=== PATIENT | male | born 1975 | race African-American/Black ===

== ENCOUNTER 2023-04-23 22:36 | Emergency (ER) | payer MEDICARE, OTHER ==
[~2023-04-23] VITALS: Ht 167.6 cm; Wt 100.0 kg
[2023-04-23 23:00] VITALS: BP 135/83; PULSE 66; RESP 16; O2SAT 98
[2023-04-24 00:10] LABS: Urine WBC None Seen /hpf (0 - 3)
[2023-04-24 00:37] LABS: Urine Bacteria NONE SEEN /hpf (None Seen); Urine Blood Negative /uL (Negative); Urine Clarity Clear (Clear); Urine Color Colorless (Yellow); Urine Protein, UAD Negative (Negative); Urine Specific Gravity 1.013 (1.001-1.035); Urine Urobilinogen Normal (Negative)
[2023-04-24] MEDS ORDERED: CYCL-614 PO (01:37)
[2023-04-24] MEDS ORDERED: IBUP-1456 PO (01:37)
[2023-04-24] MEDS: KETOROLAC TROMETH 60MG/2ML VIAL IM ONE (01:41)
== END 2023-04-24 01:50 | disposition home or self-care (01) ==
LOC: ER 22:36
DX: S46.812A Strain of other muscles, fascia and tendons at shoulder and upper arm level, left arm, initial encounter (principal); R30.0 Dysuria; Z88.8 Allergy status to other drugs, medicaments and biological substances; Z79.899 Other long term (current) drug therapy; X50.0XXA Overexertion from strenuous movement or load, initial encounter; Y93.89 Activity, other specified; Y92.89 Other specified places as the place of occurrence of the external cause; Y99.8 Other external cause status
CPT/HCPCS: 81001; 96372; 99283; J1885

== ENCOUNTER 2023-07-19 18:35 | Inpatient (IN) | payer MEDICARE, MEDICAID ==
[~2023-07-19] VITALS: Ht 172.7 cm; Wt 56.7 kg
[~2023-07-19 18:35] MED LIST: CYCL-614 PO; IBUP-1456 PO
[2023-07-19 19:36] LABS: Basophils # (auto) 0 10 ^3/uL (0-0.2); Eosinophils # (auto) 0.3 10 ^3/uL (0-0.8); Hemoglobin 14.2 g/dL (13.5-17.5); Monocytes # (auto) 0.5 10 ^3/uL (0-1.3); Neutrophils # (auto) 1.7 10 ^3/uL (1.6-8.6); Nucleated Red Blood Cells % 0.2 %
[2023-07-19 19:38] LABS: Basophils % (auto) 0.7 % (0.0-2.0); Eosinophils % (auto) 6.3 % (0.0-7.0); Hematocrit 43.7 % (41.0-53.0); Lymphocytes # (auto) 2.4 10 ^3/uL (0.4-5.4); Lymphocytes % (auto) 48.3 % (10.0-50.0); Mean Corpuscular Hemoglobin 26.4 pg (28.0-32.0); Mean Corpuscular Hgb Conc. 32.5 g/dL (32.0-36.0); Mean Corpuscular Volume 81.4 fL (80.0-100.0); Monocytes % (auto) 10.2 % (0.0-12.0); Neutrophils % (auto) 34.5 % (37.0-80.0); Red Blood Cells 5.37 10^6/uL (4.5-5.90); Red Cell Distribution Width 14.8 % (11.8-14.3); White Blood Cell 4.9 10^3/uL (4.4-10.8)
[2023-07-19 19:52] LABS: Partial Thromboplastin Time 27.9 SEC (24.5-34.5); Prothrombin Time 10.6 sec (9.3-11.8)
[2023-07-19 19:57] LABS: Alanine Aminotransferase 31 U/L (7-40); Albumin 4.6 g/dL (3.2-4.8); Alkaline Phosphatase 82 U/L (46-116); Anion Gap 9 (5-15); Aspartate Aminotransferase 28 U/L (13-40); BUN/Creatinine Ratio 8.9 (10.0-20.0); Bilirubin, Total 0.6 mg/dL (0.2-1.0); Blood Urea Nitrogen 8 mg/dL (9-23); Calcium 10.1 mg/dL (8.5-10.1); Carbon Dioxide 28 mmol/L (20-30); Chloride 102 mmol/L (98-107); Glucose 123 mg/dL (74-106); Potassium 4.1 mmol/L (3.5-5.1); Sodium 139 mmol/L (136-145); Total Protein 7.5 g/dL (5.7-8.2)
[2023-07-19] MEDS ORDERED: HEPARIN SODIUM (PORCINE) 5000 UNITS/ML 1ML VIAL IV ONE (20:30)
[2023-07-19 21:05] VITALS: PULSE 64; RESP 13; O2SAT 99
[2023-07-19 21:09] LABS: Magnesium 1.8 mg/dL (1.6-2.6)
[2023-07-19] MEDS: ASPirin 81 mg TAB PO ONE (21:55)
[2023-07-19] MEDS: SODIUM CHLOR 0.9% PF (SALINE LOCK) 10ML VIAL/SYR IV SCH (22:06)
[2023-07-19] MEDS: ENOXAPARIN SOD 100 MG/1 ML SYRINGE SC ONE (22:07)
[2023-07-19] MEDS ORDERED: ACETAMINOPHEN 325 MG TAB PO PRN (22:15)
[2023-07-19] MEDS: ENOXAPARIN SOD 80 MG/0.8ML SYRINGE SC ONE (22:16)
[2023-07-19 22:18] LABS: Magnesium 1.8 mg/dL (1.6-2.6)
[2023-07-19] MEDS: SODIUM CHLORIDE 0.9% 1,000 ML IV SCH (22:58)
[2023-07-19] MEDS: ONDANSETRON HCL 4 MG/2 ML VIAL IV PRN (22:59)
[2023-07-19] MEDS: MORPHINE SULFATE INJ 2 MG/ml SYRG IV PRN (23:00)
[2023-07-20] VITALS (10 sets, daily range): BP systolic 106–137; BP diastolic 71–88; PULSE 64–82; RESP 14–22; TEMP 98.1–99.8; O2SAT 95–98
[2023-07-20 01:29] LABS: Urine Bacteria None Seen /hpf (None Seen); Urine WBC None Seen /hpf (0 - 3)
[2023-07-20 01:36] LABS: Urine Blood Negative /uL (Negative); Urine Clarity Clear (Clear); Urine Color Light-Yellow (Yellow); Urine Protein, UAD Negative (Negative); Urine Specific Gravity 1.012 (1.001-1.035); Urine Urobilinogen Normal (Negative)
[2023-07-20 05:56] LABS: Basophils # (auto) 0 10 ^3/uL (0-0.2); Eosinophils # (auto) 0.2 10 ^3/uL (0-0.8); Hemoglobin 14.2 g/dL (13.5-17.5); Lymphocytes # (auto) 2.2 10 ^3/uL (0.4-5.4); Monocytes # (auto) 0.5 10 ^3/uL (0-1.3)
[2023-07-20 06:00] LABS: Basophils % (auto) 0.6 % (0.0-2.0); Eosinophils % (auto) 2.7 % (0.0-7.0); Hematocrit 43.1 % (41.0-53.0); Lymphocytes % (auto) 34.4 % (10.0-50.0); Mean Corpuscular Hemoglobin 26.8 pg (28.0-32.0); Mean Corpuscular Hgb Conc. 32.9 g/dL (32.0-36.0); Mean Corpuscular Volume 81.5 fL (80.0-100.0); Monocytes % (auto) 8.1 % (0.0-12.0); Neutrophils # (auto) 3.5 10 ^3/uL (1.6-8.6); Neutrophils % (auto) 54.2 % (37.0-80.0); Nucleated Red Blood Cells % 0.1 %; Red Blood Cells 5.29 10^6/uL (4.5-5.90); Red Cell Distribution Width 14.2 % (11.8-14.3); White Blood Cell 6.5 10^3/uL (4.4-10.8)
[2023-07-20 06:07] LABS: Alanine Aminotransferase 27 U/L (7-40); Albumin 4.3 g/dL (3.2-4.8); Alkaline Phosphatase 78 U/L (46-116); Anion Gap 9 (5-15); Aspartate Aminotransferase 48 U/L (13-40); BUN/Creatinine Ratio 8.4 (10.0-20.0); Bilirubin, Total 0.7 mg/dL (0.2-1.0); Blood Urea Nitrogen 7 mg/dL (9-23); Calcium 9.8 mg/dL (8.5-10.1); Carbon Dioxide 27 mmol/L (20-30); Chloride 103 mmol/L (98-107); Glucose 119 mg/dL (74-106); Potassium 3.8 mmol/L (3.5-5.1); Sodium 139 mmol/L (136-145); Total Protein 7.3 g/dL (5.7-8.2)
[2023-07-20] MEDS: HYDROcodone-ACET 5/325MG TAB PO PRN (08:44)
[2023-07-20] MEDS: ASPirin 81 mg TAB PO SCH (08:44)
[2023-07-20] MEDS: HEPARIN DRIP/D5W 100UNITS/ML 250 ML IV SCH ×2 (08:49→16:16)
[2023-07-20] MEDS: ATORVASTATIN 20 MG TAB PO ONE (12:39)
[2023-07-20] MEDS: LISINOPRIL 20 MG TAB PO ONE (12:41)
[2023-07-20 15:31] LABS: INR 1.03 (0.9-1.15); Partial Thromboplastin Time 35.9 SEC (24.5-34.5); Prothrombin Time 10.9 sec (9.3-11.8)
[2023-07-20] MEDS: MORPHINE SULFATE INJ 2 MG/ml SYRG IV PRN (16:44)
[2023-07-20] MEDS: NITROGLYCERIN 0.4 MG SL TAB SL PRN (17:26)
[2023-07-20 21:58] LABS: Amphetamine Screen, Urine Neg (NEGATIVE); Barbiturate Scree,Urine Neg (NEGATIVE); Benzodiazephine Screen, Urine Neg (NEGATIVE); Cocaine Screen, Urine Neg (NEGATIVE); Opiate Scree,Urine Pos (NEGATIVE)
[2023-07-20 21:59] LABS: Cannabinoid Screen, Urine Neg (NEGATIVE); Phencyclidine Screen, Urine Neg (NEGATIVE)
[2023-07-20] MEDS: DOCUSATE SOD 100 MG CAP PO PRN (22:17)
[2023-07-20] MEDS: METOPROLOL TARTRATE 25 MG TAB PO SCH (22:18)
[2023-07-20 22:19] LABS: INR 1.01 (0.9-1.15); Partial Thromboplastin Time 37.9 SEC (24.5-34.5); Prothrombin Time 10.7 sec (9.3-11.8)
[2023-07-21] VITALS (12 sets, daily range): BP systolic 89–147; BP diastolic 43–95; PULSE 58–80; RESP 11–22; TEMP 97.5–98.5; O2SAT 95–100
[2023-07-21 07:14] LABS: INR 1.05 (0.9-1.15); Partial Thromboplastin Time 52.1 SEC (24.5-34.5); Prothrombin Time 11.1 sec (9.3-11.8)
[2023-07-21] MEDS: LISINOPRIL 20 MG TAB PO SCH (09:07)
[2023-07-21] MEDS: IODIXANOL 320MG/ML 100ML BTL IV ONE ×2 (09:42→10:38)
[2023-07-21] MEDS: HEPARIN IN NS 1000Units/500mL 1,500 ML ONE (09:42)
[2023-07-21] MEDS: LIDOCAINE 2%HCL (LOCAL ANESTH.) INJ 20ML MDV ONE (09:42)
[2023-07-21] MEDS: ANGIOMAX 250 MG VIAL IV ONE ×2 (09:43→11:09)
[2023-07-21] MEDS: fentaNYL CITRATE 100 MCG/2 ML VL ONE (09:44)
[2023-07-21] MEDS: HEPARIN SODIUM (PORCINE) 5000 UNITS/ML 1ML VIAL ONE (09:44)
[2023-07-21] MEDS: VERAPAMIL 2.5MG/ML INJ 2ML VIAL IV ONE (09:44)
[2023-07-21] MEDS: SODIUM CHL 0.9% 50 ML ONE ×2 (09:44→11:09)
[2023-07-21] MEDS: MIDAZOLAM HCL 2MG/2ML 2ml VIAL (1mg/ml) ONE (09:44)
[2023-07-21] MEDS: NOREPINEPHRINE 8 MG/250ML KIT 250 ML IV ONE (10:22)
[2023-07-21] MEDS: EPTIFIBATIDE INJ (2MG/ML) 10ML VIAL IV ONE ×2 (10:38→10:58)
[2023-07-21] MEDS: niCARdipine 25 MG/10 ML VIAL IV ONE (10:44)
[2023-07-21] MEDS: ASPirin 81 mg TAB ONE (11:52)
[2023-07-21] MEDS: CLOPIDOGREL BISULFATE 75 MG TAB ONE ×2 (11:53)
[2023-07-21] MEDS: ATORVASTATIN 20 MG TAB PO SCH (21:30)
[2023-07-22] VITALS (9 sets, daily range): BP systolic 99–122; BP diastolic 60–76; PULSE 59–80; RESP 16–22; TEMP 97.6–98.3; O2SAT 95–100
[2023-07-22] MEDS: CLOPIDOGREL BISULFATE 75 MG TAB PO SCH (10:04)
[2023-07-23 01:08] VITALS: BP 112/79; PULSE 63; RESP 17; TEMP 97.8; O2SAT 100
[2023-07-23 05:00] VITALS: BP 112/67; PULSE 72; RESP 17; TEMP 97.3; O2SAT 98
[2023-07-23 08:00] VITALS: PULSE 66; PULSE 72; RESP 18; O2SAT 98
[2023-07-23 09:00] VITALS: BP_SYST 112; BP_SYST 115; BP_DIAS 65; BP_DIAS 75; PULSE 58; PULSE 66; RESP 18; TEMP 97.6; TEMP 97.7; O2SAT 97; O2SAT 98
[2023-07-23] MEDS ORDERED: ASPI-628 PO (09:26)
[2023-07-23] MEDS ORDERED: ATOR-507 PO (09:26)
[2023-07-23] MEDS ORDERED: HYDR-4902 PO (09:26)
[2023-07-23] MEDS ORDERED: CLOP75TA28 PO (09:26)
[2023-07-23] MEDS ORDERED: LISI20TA56 PO (09:26)
[2023-07-23] MEDS ORDERED: METO25TA5 PO (09:26)
[2023-07-23 12:08] VITALS: BP 115/73; PULSE 62; RESP 18; TEMP 98.2; O2SAT 99
[2023-07-23 12:30] VITALS: BP 115/73; PULSE 62; RESP 18; TEMP 98.2; O2SAT 99
== END 2023-07-23 14:00 | disposition home or self-care (01) | DRG 321 ==
LOC: EDBD 18:35 → ER 18:35 → TELE 22:46 → TELE-CENTR 07-20 02:05
PROVIDERS: ADMIT Nurse Practitioner Family; ATTEND Family Medicine
PROC: 027034Z Dilation of Coronary Artery, One Artery with Drug-eluting Intraluminal Device, Percutaneous Approach (ICD-10-PCS; principal; 2023-07-21)
PROC: 4A023N7 Measurement of Cardiac Sampling and Pressure, Left Heart, Percutaneous Approach (ICD-10-PCS; 2023-07-21)
PROC: B211YZZ Fluoroscopy of Multiple Coronary Arteries using Other Contrast (ICD-10-PCS; 2023-07-21)
PROC: B215YZZ Fluoroscopy of Left Heart using Other Contrast (ICD-10-PCS; 2023-07-21)
PROC: 03HY32Z Insertion of Monitoring Device into Upper Artery, Percutaneous Approach (ICD-10-PCS; 2023-07-21)
PROC: B240ZZ3 Ultrasonography of Single Coronary Artery, Intravascular (ICD-10-PCS; 2023-07-21)
DX: I21.4 Non-ST elevation (NSTEMI) myocardial infarction (principal); I50.21 Acute systolic (congestive) heart failure; E78.00 Pure hypercholesterolemia, unspecified; I25.10 Atherosclerotic heart disease of native coronary artery without angina pectoris; I10 Essential (primary) hypertension; Z87.891 Personal history of nicotine dependence; Z88.2 Allergy status to sulfonamides; Z88.1 Allergy status to other antibiotic agents
CPT/HCPCS: 36415; 71045; 80053; 80061; 80307; 81001; 83735; 83880; 84484; 85025; 85610; 85730; 86850; 86900; 86901; 92941; 92973; 92978; 93005; 93306; 93458; 96372; 96374; 99152; G0378; J2250; J2405; Q9967

== ENCOUNTER 2023-08-31 22:57 | Inpatient (IN) | payer MEDICAID, MEDICARE, OTHER ==
[~2023-08-31] VITALS: Ht 170.2 cm; Wt 197.0 kg
[~2023-08-31 22:57] MED LIST changes: +ASPI-628 PO; +ATOR-507 PO; +CLOP75TA28 PO; +HYDR-4902 PO; +LISI20TA56 PO; +METO25TA5 PO
[2023-08-31 23:15] LABS: Basophils # (auto) 0.1 10 ^3/uL (0-0.2); Basophils % (auto) 1.3 % (0.0-2.0); Eosinophils # (auto) 0.2 10 ^3/uL (0-0.8); Eosinophils % (auto) 4.5 % (0.0-7.0); Hematocrit 46.6 % (41.0-53.0); Hemoglobin 15.5 g/dL (13.5-17.5); Lymphocytes # (auto) 1.7 10 ^3/uL (0.4-5.4); Lymphocytes % (auto) 35.6 % (10.0-50.0); Mean Corpuscular Hemoglobin 27.4 pg (28.0-32.0); Mean Corpuscular Hgb Conc. 33.2 g/dL (32.0-36.0); Mean Corpuscular Volume 82.3 fL (80.0-100.0); Monocytes # (auto) 0.5 10 ^3/uL (0-1.3); Monocytes % (auto) 10.6 % (0.0-12.0); Neutrophils # (auto) 2.2 10 ^3/uL (1.6-8.6); Nucleated Red Blood Cells % 0.1 %; Red Blood Cells 5.67 10^6/uL (4.5-5.90); Red Cell Distribution Width 14.1 % (11.8-14.3); White Blood Cell 4.6 10^3/uL (4.4-10.8)
[2023-08-31 23:33] LABS: Alanine Aminotransferase 50 U/L (7-40); Albumin 4.8 g/dL (3.2-4.8); Alkaline Phosphatase 85 U/L (46-116); Anion Gap 6 (5-15); Aspartate Aminotransferase 26 U/L (13-40); Bilirubin, Total 0.6 mg/dL (0.2-1.0); Blood Urea Nitrogen 9 mg/dL (9-23); Calcium 10.3 mg/dL (8.5-10.1); Carbon Dioxide 26 mmol/L (20-30); Chloride 107 mmol/L (98-107); Glucose 108 mg/dL (74-106); Potassium 4.1 mmol/L (3.5-5.1); Sodium 139 mmol/L (136-145); Total Protein 8.1 g/dL (5.7-8.2)
[2023-08-31 23:39] VITALS: O2SAT 96
[2023-08-31 23:41] LABS: Urine Bacteria None Seen /hpf (None Seen)
[2023-08-31 23:50] LABS: Urine Blood Negative /uL (Negative); Urine Clarity Clear (Clear); Urine Color Light-Yellow (Yellow); Urine Protein, UAD Negative (Negative); Urine Specific Gravity 1.022 (1.001-1.035); Urine Urobilinogen Normal (Negative); Urine WBC 1 /hpf (0 - 3); Urine pH 6.5 (5.0-9.0)
[2023-09-01] MEDS: NITROGLYCERIN 0.4 MG SL TAB SL ONE (00:23)
[2023-09-01] MEDS ORDERED: hydrALAZINE HCL 20 MG/ML VL IV PRN (02:15)
[2023-09-01] MEDS ORDERED: ONDANSETRON HCL 4 MG/2 ML VIAL IV PRN (02:15)
[2023-09-01] MEDS ORDERED: IBUPROFEN 600 MG TAB PO PRN (02:15)
[2023-09-01] MEDS ORDERED: DOCUSATE SOD 100 MG CAP PO PRN (02:15)
[2023-09-01] MEDS: SODIUM CHLOR 0.9% PF (SALINE LOCK) 10ML VIAL/SYR IV SCH (05:13)
[2023-09-01] MEDS ORDERED: MORPHINE SULFATE INJ 2 MG/ml SYRG IV PRN (05:15)
[2023-09-01] MEDS ORDERED: NITROGLYCERIN 0.4 MG SL TAB SL PRN (05:15)
[2023-09-01 05:43] LABS: Basophils # (auto) 0.1 10 ^3/uL (0-0.2); Basophils % (auto) 1.1 % (0.0-2.0); Eosinophils # (auto) 0.2 10 ^3/uL (0-0.8); Eosinophils % (auto) 4.7 % (0.0-7.0); Hematocrit 44.4 % (41.0-53.0); Hemoglobin 14.9 g/dL (13.5-17.5); Lymphocytes # (auto) 1.9 10 ^3/uL (0.4-5.4); Lymphocytes % (auto) 42.2 % (10.0-50.0); Mean Corpuscular Hemoglobin 27.6 pg (28.0-32.0); Mean Corpuscular Hgb Conc. 33.7 g/dL (32.0-36.0); Monocytes # (auto) 0.4 10 ^3/uL (0-1.3); Monocytes % (auto) 9.5 % (0.0-12.0); Neutrophils % (auto) 42.5 % (37.0-80.0); Nucleated Red Blood Cells % 0.1 %; Red Blood Cells 5.42 10^6/uL (4.5-5.90); Red Cell Distribution Width 14.2 % (11.8-14.3); White Blood Cell 4.6 10^3/uL (4.4-10.8)
[2023-09-01 06:12] LABS: Chloride 106 mmol/L (98-107); Potassium 3.7 mmol/L (3.5-5.1); Sodium 138 mmol/L (136-145)
[2023-09-01 06:13] LABS: Anion Gap 5 (5-15); Calcium 9.9 mg/dL (8.5-10.1); Carbon Dioxide 27 mmol/L (20-30)
[2023-09-01 06:18] LABS: BUN/Creatinine Ratio 10.5 (10.0-20.0); Blood Urea Nitrogen 8 mg/dL (9-23); Glucose 120 mg/dL (74-106)
[2023-09-01 07:30] VITALS: PULSE 75; RESP 13; O2SAT 96
[2023-09-01] MEDS ORDERED: CLOP75TA28 PO (08:21)
[2023-09-01] MEDS: HYDROcodone-ACET 5/325MG TAB PO PRN (08:34)
[2023-09-01] MEDS: ASPirin 81 mg TAB PO SCH (09:39)
[2023-09-01] MEDS: CLOPIDOGREL BISULFATE 75 MG TAB PO ONE (11:44)
[2023-09-01] MEDS: ATORVASTATIN 20 MG TAB PO ONE (11:44)
[2023-09-01] MEDS: LISINOPRIL 20 MG TAB PO ONE (11:49)
[2023-09-01] MEDS: CEPHALEXIN 250 MG CAP PO SCH (12:44)
[2023-09-01] MEDS ORDERED: LISI-275 PO (15:15)
[2023-09-01] MEDS ORDERED: METO25TA93 PO (15:17)
[2023-09-01 15:53] VITALS: BP 109/50; PULSE 75; RESP 18; TEMP 98; O2SAT 95
[2023-09-01 16:00] VITALS: BP 109/50; PULSE 71; RESP 22; O2SAT 93
[2023-09-01] MEDS ORDERED: ATORVASTATIN 20 MG TAB PO SCH (22:00)
[2023-09-01] MEDS ORDERED: METOPROLOL TARTRATE 25 MG TAB PO SCH (22:00)
[2023-09-02] MEDS ORDERED: LISINOPRIL 20 MG TAB PO SCH (10:00)
[2023-09-02] MEDS ORDERED: CLOPIDOGREL BISULFATE 75 MG TAB PO SCH (10:00)
[2023-09-02] MEDS ORDERED: ATORVASTATIN 20 MG TAB PO SCH (22:00)
== END 2023-09-01 16:20 | disposition home or self-care (01) | DRG 198 ==
LOC: ER 22:57 → TELE 09-01 05:08
PROVIDERS: ADMIT Nurse Practitioner Family; ATTEND Nurse Practitioner Family
DX: I25.118 Atherosclerotic heart disease of native coronary artery with other forms of angina pectoris (principal); L03.115 Cellulitis of right lower limb; E78.5 Hyperlipidemia, unspecified; I10 Essential (primary) hypertension; F17.200 Nicotine dependence, unspecified, uncomplicated; Z79.02 Long term (current) use of antithrombotics/antiplatelets; Z79.82 Long term (current) use of aspirin; Z79.899 Other long term (current) drug therapy; Z88.1 Allergy status to other antibiotic agents; Z95.5 Presence of coronary angioplasty implant and graft; I25.2 Old myocardial infarction
CPT/HCPCS: 36415; 80048; 80053; 81001; 83880; 84484; 85025; 93005; G0378